=== PATIENT | male | born 1940 ===

== ENCOUNTER 2023-11-12 08:04 | Outpatient (CLI) | payer OTHER ==
[~2023-11-12 08:04] MED LIST: CELEBREX100 MG PO; LYRICA50 MG PO; SKELAXIN800 MG PO
== END 2023-11-12 08:25 | disposition home or self-care (01) ==
LOC: MRI 08:04
PROVIDERS: ATTEND Specialist
DX: C25.9 Malignant neoplasm of pancreas, unspecified (principal); D64.0 Hereditary sideroblastic anemia
CPT/HCPCS: 72197; 74183; Q9965